=== PATIENT | male | born 2000 | race Caucasian/White ===

== ENCOUNTER 2022-02-02 05:16 | Emergency (ER) | payer BC, SELFPAY ==
[2022-02-02 05:23] VITALS: BP 134/68; PULSE 97; RESP 16; TEMP 37.2; O2SAT 97
--- NOTE | 2022-02-02 05:24 | W.ED.GENAD ---
Discharge Plan Disposition Patient Disposition: HOME Condition: Improving Discharge Details Clinical Impression: Left testicular pain Primary Care Provider: Xander Martin ED Provider: Elliott Jovel [place] Meds and New Rx's Prescriptions: Continued triamcinolone acetonide 0.1 % cream 1 applic topical BID Qty: 15 3RF sertraline 50 mg tablet 50 mg PO DAILY Qty: 90 4RF sertraline 100 mg tablet 100 mg PO DAILY Qty: 90 4RF Discharge Instructions Instructions: Testicle Pain (ED) Additional Instructions: You were seen for left testicle pain that improved on its own once he. Evaluation and exam are reassuring. Urine GC and Chlamydia testing is pending and you will be notified if positive. Please follow-up with primary care and or urology especially if you continue to have episodes of pain. Return to ED for fever, scrotal swelling or erythema, recurrent and worsening testicle pain. Referrals: [facility] [Provider Group] Xander Martin, WAREHOUSE COORDINATOR [Primary Care Provider] - Medical Decision Making Patient presenting with acute onset of left testicular pain which was worse when he was trying to reduce hernia. Patient with no evidence of hernia on exam. Reports pain significantly decreased just prior to my coming into the room. Still has mild left testicular tenderness. Consider possibility of torsion and detorsion of the left testicle. No mass or abnormality felt on physical exam. Will obtain urine for GC and chlamydia as well as clean-catch for urinalysis. Will obtain scrotal ultrasound. Patient's pain and anxiety improved after evaluation. Urinalysis contaminated without signs of infection given the amount of mucus present. GC and Chlamydia pending. Ultrasound normal and discussed with radiology, Dr. Meléndez. Patient pain-free at this time. Discussed results with patient and will have him follow-up with PCP or urology especially if continued episodes of pain. Return precautions discussed. Lab Data Lab results reviewed: Yes I reviewed the patient's lab results. HPI General Mode of arrival: ambulatory. Date/Time Provider Initiated Documentation: 02/02/22 05:24. Limitations to Documentation: no limitations. Information obtained by: patient and RN notes reviewed. HPI Narrative: Patient presents to ED with complaint of left testicular pain. Patient reports developing pain on his way to work. It became excruciating and he was very tender with pain radiating up into his abdomen causing him to feel dizzy and lightheaded. He left work and came to the ED. Continues to have significant pain right up until the time of my evaluation. He denies any trauma. He denies any difficulty urinating or hematuria. He has not had sexual relations in some time he denies any discharge. He thought he felt a lump in the scrotum against the testicle. He thought maybe he had a hernia based on what he read on [employer]. Has never noticed a bulge or swelling previously. Does state that he was trying to massage the area which only made the pain worse. Related Data Home Medications Medication Instructions Recorded Confirmed triamcinolone acetonide 0.1 % 1 applic topical BID #15 grams 10/02/21 02/02/22 topical cream sertraline 100 mg tablet 100 mg PO DAILY #90 tabs 01/21/22 02/02/22 sertraline 50 mg tablet 50 mg PO DAILY #90 tabs 01/21/22 02/02/22 Previous Rx's Medication Instructions Recorded triamcinolone acetonide 0.1 % 1 applic topical BID #15 grams 10/02/21 topical cream sertraline 100 mg tablet 100 mg PO DAILY #90 tabs 01/21/22 sertraline 50 mg tablet 50 mg PO DAILY #90 tabs 01/21/22 Allergies Allergy/AdvReac Type Severity Reaction Status Date / Time No Known Allergies Allergy Unverified 02/02/22 05:27 Review of Systems Narrative: 10/17 Review of Systems completed and is negative except as stated above in HPI (Systems reviewed: Const, Resp, CV, GI, Neuro) PFSH All Active Problems (Updated 02/02/22 @ 07:40 by Elliott Jovel MD) Left testicular pain (Acute) Eczema (Acute) Medical History (Updated 02/02/22 @ 07:40 by Elliott Jovel MD) ADHD Anxiety Depression Surgical History No significant past surgical history Family History (Updated 09/11/21 @ 10:27 by Veronica Monroe) Mother No problems noted. Father Alcohol use disorder Brother No problems noted. Maternal Grandfather Alcohol use disorder Paternal Grandfather , 77 Colon cancer Maternal Grandmother Alcohol use disorder Paternal Grandmother No problems noted. Social History Smoking/Tobacco Use Status: Current-Occasional Tobacco Type: cigarettes and e-cigarettes Tobacco: How many years used: 1 Quit status: considering quitting Second Hand Exposure: Yes Smoking risk assessment performed?: Yes Alcohol Intake: current Alcohol Intake frequency: a few times a month Alcohol type: beer Drug use: Occasionally Substance use type: marijuana Caregiver/Support person: No Household members: family Communication Needs: Corrective Lenses Do you need help understanding health information?: Often Pets and animals: No Sexually active: No Do you think of yourself as: straight/heterosexual Current gender identity: male What is your relationship status?: refused to answer How often do you talk on the phone with friends or family?: three or more times per week How often do you get together with friends or relatives?: twice per week How often do you attend confucianism or mosque services?: decline to answer Do you belong to any clubs or organized social groups?: no Panel score (0-1 are the most socially isolated patients): 1 Duration: 60-90 minutes/day Frequency: 5-6 times per week Marisa/Cheondoism: No preference Special marisa needs: No Seatbelt use: always Helmet use: Yes Helmet use: always Drive intox or ride w/intox seasonal driver: No Exam Narrative Exam Narrative: Const: WDWN male in NAD but very anxious. HEENT: NC/AT. Normal facial exam. Eyes: Normal conjunctiva and sclera. Neck: Supple. Trachea midline. Lungs: Normal respiratory effort. GI: Soft. NT/ND. No guarding or rebound. : Normal male genitalia. Cremasteric reflex intact. No inguinal hernia appreciated. No swelling of testicle or scrotum. Mild tenderness to left testicle and epididymis. Right side nontender. Neuro: A+O x 3. Normal speech, mentation, gait. Cranial nerves II - XII grossly intact. No gross motor or sensory deficit. Ext: No C/C/E. Skin: Warm and dry without rash.
--- NOTE | 2022-02-02 05:30 | DI.US_ITS ---
Exam(s) US SCROTUM EXAM: US SCROTUM CLINICAL HISTORY: left testicular pain TECHNIQUE: Scrotal ultrasound was performed utilizing scanning with high-frequency transducer. COMPARISON: No exams were available for comparison FINDINGS: The testes are normal in size and shape and are normal in echotexture. There is normal vascular flow of the testes on Doppler evaluation and flow is symmetrical. No testicular mass identified. The epididymi are unremarkable in appearance with normal vascular flow. There is no evidence of a varicocele or hydrocele. IMPRESSION: Normal scrotal ultrasound. RADIATION DOSE DELIVERED:
[2022-02-02 06:14] LABS: Bilirubin Negative (Negative); Blood Negative (Negative); Clarity Sl Cloudy (Clear); Glucose Negative (Negative); Ketones Negative (Negative); Leukocyte Esterase Moderate (Negative); Nitrite Negative (Negative); Specific Gravity 1.025 (1.005-1.025); pH 6.5 (5-8)
[2022-02-02 06:26] LABS: WBC 20-50 HPF (0-5)
[2022-02-02 06:27] LABS: Bacteria Few HPF (Negative); Casts Negative LPF (Negative); Crystals Negative HPF (Negative); Epithelial Cells Few HPF (Negative); Mucus Moderate (Negative); RBC 0-2 HPF (0-2)
[2022-02-02 06:28] LABS: C & S Indicated? No/Sq. Contamination
[2022-02-03 15:10] LABS: Chlamydia Result Negative (Negative); GC Result Negative (Negative)
== END 2022-02-02 08:10 | disposition home or self-care (01) ==
PROVIDERS: Emergency Provider Emergency Medicine; PCP Nurse Practitioner Family
DX: N50.812 Left testicular pain (principal); F17.210 Nicotine dependence, cigarettes, uncomplicated; F17.290 Nicotine dependence, other tobacco product, uncomplicated
CPT/HCPCS: 87491; 87591; 99284; 76870; 81003; 81015; 99282